=== PATIENT | female | born 1970 | race Caucasian/White ===

== ENCOUNTER 2017-02-20 09:01 | Emergency (ER) | payer BC ==
--- NOTE | ~2017-02-20 | US98 ---
[facility] A Service of [facility] & [facility] RADIOLOGY TEXT RESULTS PATIENT: RL AHUMADA LOCATION: [facility] : 70 UNIT #: [id number] AGE: [address]: Mavis Kaur APRN SEX: F ORDER DR: [id number] [facility] [address] [place], [place] [address] [id number] MR#: [id number] Acc #: [id number] NAME: RL AHUMADA : 1970 SEX: F STUDY DATE/TIME: 02/20/2017 12:30 UNIT: [facility] ROOM: STUDY DESCRIPTION: US Pelvic Non-OB Complete Attending Physician: Mavis Kaur A.P.R.N. Ordering Physician: Deana Barreto M.D. Primary Care Physician: Mana Rueda Aprn MEDICAL IMAGING REPORT This report is preliminary unless electronic signature is present EXAM Pelvic sonogram CLINICAL HISTORY 46-year-old female complains of lower pelvic and right lower quadrant pain for several days. History states 17, para 6, AB 11. FINDINGS Real-time examination was form utilizing both transabdominal and endovaginal scanning. Examination demonstrates a normal-appearing anteverted nongravid uterus measuring 9.7 cm x 5.5 cm x 6.4 cm. The endometrium appears normal with a double thickness measurement of 11 mm. Multiple cervical cysts are noted. Right ovary visualized with a dominant follicle measuring 2.7 cm. Left ovary not seen. No free fluid or adnexal masses. IMPRESSION Unremarkable pelvic sonogram. Left ovary not visualized but no adnexal mass seen. A dominant follicle or simple cyst noted within the right ovary. Dictated by... Robin Landrum M.D. THIS IS AN ELECTRONICALLY VERIFIED REPORT Robin Landrum M.D. at 02/21/2017 12:31 PM Guillermina TD: 02/21/2017 00:29 JOB #: [id number] MEDICAL IMAGING REPORT [facility] A Service of [facility] & [facility] RADIOLOGY TEXT RESULTS PATIENT: RL AHUMADA LOCATION: [facility] : 70 UNIT #: [id number] AGE: [address]: Mavis Kaur APRN SEX: F ORDER DR: Page 1 of 1 COPY
[~2017-02-20 09:01] MED LIST: DICLOFENAC DR PO; FLEXERIL10 MG PO; TRAZODONE HCL100 MG PO
[2017-02-20 10:00] LABS: URINE SOURCE CLEAN CATCH
[2017-02-20 10:06] LABS: URINE APPEARANCE CLOUDY; URINE BILIRUBIN NEG (NEG); URINE BLOOD NEG (NEG); URINE COLOR YELLOW; URINE GLUCOSE NEG (NEG); URINE KETONE NEG (NEG); URINE LEUKOCYTE ESTERASE NEG (NEG); URINE NITRATE NEG (NEG); URINE PH 8.5 (5-8); URINE PROTEIN NEG (NEG); URINE SPECIFIC GRAVITY 1.019 (1.003-1.035)
[2017-02-20 10:09] LABS: CULTURE INDICATED? NO
[2017-02-20 10:21] LABS: BASOPHIL# 0.1 X10e3 (0-0.3); BASOPHIL% 0.7 % (0-2.5); EOSINOPHIL# 0.1 X10e3 (0-0.7); EOSINOPHIL% 1.5 % (0.0-7.0); HEMATOCRIT 39.3 % (35.0-45.0); HEMOGLOBIN 12.7 gm/dL (12.0-16.0); LYMPHOCYTE% 23.7 % (17.0-45.0); MEAN CELL VOLUME 91.9 FL (83-96); MEAN CORPUSCULAR HEMOGLOBIN 29.8 PG (28-34); MEAN CORPUSCULAR HGB CONC 32.4 g/dL (30-36); MEAN PLATELET VOLUME 8.6 FL (6.5-11.5); MONOCYTE# 0.5 X10e3 (0-1.0); NEUTROPHIL# 5.8 X10e3 (1.5-7.1); NEUTROPHIL% 68.1 % (40-75); PLATELET COUNT 226 X10e3 (140-420); RED BLOOD COUNT 4.28 X10e (3.90-5.30); RED CELL DISTRIBUTION WIDTH 13.4 % (11.0-15.5); WHITE BLOOD COUNT 8.5 X10e3 (4.0-10.5)
[2017-02-20 10:28] LABS: DIFF IND NO
[2017-02-20 10:49] LABS: ALBUMIN SERUM 4.1 g/dL (3.5-5.0); BILIRUBIN,TOTAL 0.3 mg/dL (0.2-2.0); CALCIUM SERUM 8.8 mg/dL (8.4-10.2); CREATININE SERUM 0.6 mg/dL (0.6-1.4); GLOM FILT RATE Estimated 109.3 mL/min (>60); POTASSIUM 4.1 mmol/L (3.5-5.1); PROTEIN TOTAL SERUM 6.8 g/dL (6.0-8.3)
[2017-02-23 13:14] LABS: CHLAMYDIA TRACH Not Detected (Not Detected); N GONOR Not Detected (Not Detected)
== END 2017-02-20 13:54 | disposition home or self-care (01) ==
LOC: CFTX 09:01 → CED 09:01 → CFTX 09:56
PROVIDERS: Nurse Practitioner
DX: R10.2 Pelvic and perineal pain (principal); F17.290 Nicotine dependence, other tobacco product, uncomplicated
CPT/HCPCS: 36415; 76830; 76856; 80053; 81003; 83690; 84703; 85025; 87491; 87591; 87808; 87905; 96374; 99284; J1885